=== PATIENT | female | born 1980 | race African-American/Black ===

== ENCOUNTER 2018-10-24 05:24 | Emergency (ER) | payer OTHER, SELFPAY ==
[2018-10-24 05:30] VITALS: BP 114/79; PULSE 79; RESP 16; O2SAT 100; BMI 31.1
--- NOTE | 2018-10-24 05:45 | ED.RECABL ---
HPI - Recheck/Abnormal Lab/Rx General Chief Complaint: Recheck/Abnormal Lab/Rx Stated Complaint: wants follow up on LI injury on sat [id number] Time Seen by Provider: 10/24/18 05:45 Source: patient and old records reviewed Mode of arrival: ambulatory Limitations: no limitations History of Present Illness HPI narrative: the patient is a 38-year-old female who presents all for re-evaluation and clearance for work. Yesterday she was seen evaluated walk-in clinic after transferring a patient at work to the toilet she is had some right-sided back pain. She had burning sensation down her back and both of her legs. She took some ibuprofen she was able to work out on the elliptical she did some stretching last night. And now she feels like she is ready and able to go to work. However she would like a note stating that she has restrictions. 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 Review of Systems Review of Systems GENERAL: Denies chills,fever HEENT: Denies throat pain RESPIRATORY: Denies dyspnea, cough, wheezing CARDIOVASCULAR: Denies chest pain, palpitations GASTROINTESTINAL: Denies nausea, vomiting MUSCULOSKELETAL: see HPI SKIN: No rash, no laceration, no pruritus NEUROLOGIC: Denies weakness, dizziness, headache, numbness 8 point review of systems is negative except for those stated above and HPI PFSH Medical History Patient denies significant medical history (Acute) Social History Smoking Status: Never smoker Social History Smoking Status: Never smoker Exam Initial Vital Signs Initial Vital Signs: Vital Signs Pulse Rate 79 10/24/18 05:30 Respiratory Rate 16 10/24/18 05:30 Blood Pressure 114/79 10/24/18 05:30 Pulse Oximetry 100 10/24/18 05:30 GENERAL: Well-appearing, well-nourished and in no acute distress. CARDIOVASCULAR: peripheral pulses in tact, cap refill <2 sec RESPIRATORY: No respiratory distress, speaks in full sentences without difficulty BACK: no vertebral tenderness no lower lumbar pain no flank pain EXTREMITIES: Normal range of motion, no clubbing or edema. Neurovascularly intact NEUROLOGICAL: Cranial nerves II through XII grossly intact. Normal gait and speech. SKIN: Warm, dry, no petechiae, no rashes or lesions. Course Vital Signs - 8 hr 10/24/18 05:30 Pulse Rate 79 Respiratory Rate 16 Blood Pressure 114/79 Pulse Oximetry 100 MDM - Recheck/Abnormal Lab/Rx MDM Narrative Medical decision making narrative: patient is requesting to go back to work. She is nursing care attendant she does not typically transfer patients. She is he states that she would like to go back to light duty with certain restrictions. I have discussed with her that she will need full clearance by her primary doctor. She understands and is agreeable. Discharge Plan Departure Patient Disposition: Home Clinical Impression: Strain of mid-back Qualifiers: Encounter type: subsequent encounter Qualified Code(s): S29.012D - Strain of muscle and tendon of back wall of thorax, subsequent encounter Discharge Date/Time: 10/24/18 05:57 Interventions: ED Discharge Assessment Last Done: 10/24/18 05:57 Instructions: Exercise May Reduce Risk of Low Back Pain Activity Restrictions/Additional Instructions: *You have been diagnosed with mid to low back strain *What to do: may return back to work however no lifting more than 10 lb no standing or sitting for prolonged periods of time. for full clearance back to work you will need note and evaluation by her primary care provider *Continue to take medications as directed Motrin 600 mg every 6-8 hours if needed for [id number] pain *Follow up with your primary care provider in 2-3 days *Return to ER if you should have increasing back pain, numbness, tingling, weakness or any new, worsening or concerning symptoms Stand Alone Forms: Work Release Note
--- NOTE | 2018-10-24 05:52 | ED_ITS ---
HPI - Recheck/Abnormal Lab/Rx General Chief Complaint: Recheck/Abnormal Lab/Rx Stated Complaint: wants follow up on LI injury on sat [id number] Time Seen by Provider: 10/24/18 05:45 Source: patient and old records reviewed Mode of arrival: ambulatory Limitations: no limitations History of Present Illness HPI narrative: the patient is a 38-year-old female who presents all for re- evaluation and clearance for work. Yesterday she was seen evaluated walk-in clinic after transferring a patient at work to the toilet she is had some right- sided back pain. She had burning sensation down her back and both of her legs. She took some ibuprofen she was able to work out on the elliptical she did some stretching last night. And now she feels like she is ready and able to go to work. However she would like a note stating that she has restrictions. 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 Review of Systems Review of Systems GENERAL: Denies chills,fever HEENT: Denies throat pain RESPIRATORY: Denies dyspnea, cough, wheezing CARDIOVASCULAR: Denies chest pain, palpitations GASTROINTESTINAL: Denies nausea, vomiting MUSCULOSKELETAL: see HPI SKIN: No rash, no laceration, no pruritus NEUROLOGIC: Denies weakness, dizziness, headache, numbness 8 point review of systems is negative except for those stated above and HPI PFSH Medical History Patient denies significant medical history (Acute) Social History Smoking Status: Never smoker Social History Smoking Status: Never smoker Exam Initial Vital Signs Initial Vital Signs: Vital Signs Pulse Rate 79 10/24/18 05:30 Respiratory Rate 16 10/24/18 05:30 Blood Pressure 114/79 10/24/18 05:30 Pulse Oximetry 100 10/24/18 05:30 GENERAL: Well-appearing, well-nourished and in no acute distress. CARDIOVASCULAR: peripheral pulses in tact, cap refill <2 sec RESPIRATORY: No respiratory distress, speaks in full sentences without difficulty BACK: no vertebral tenderness no lower lumbar pain no flank pain EXTREMITIES: Normal range of motion, no clubbing or edema. Neurovascularly intact NEUROLOGICAL: Cranial nerves II through XII grossly intact. Normal gait and speech. SKIN: Warm, dry, no petechiae, no rashes or lesions. Course Vital Signs - 8 hr 10/24/18 05:30 Pulse Rate 79 Respiratory Rate 16 Blood Pressure 114/79 Pulse Oximetry 100 MDM - Recheck/Abnormal Lab/Rx MDM Narrative Medical decision making narrative: patient is requesting to go back to work. 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 She is he states that she would like to go back to light duty with certain restrictions. I have discussed with her that she will need full clearance by her primary doctor. She understands and is agreeable. Discharge Plan Departure Patient Disposition: Home Clinical Impression: Strain of mid-back Qualifiers: Encounter type: subsequent encounter Qualified Code(s): S29.012D - Strain of muscle and tendon of back wall of thorax, subsequent encounter Discharge Date/Time: 10/24/18 05:57 Interventions: ED Discharge Assessment Last Done: 10/24/18 05:57 Instructions: Exercise May Reduce Risk of Low Back Pain Activity Restrictions/Additional Instructions: *You have been diagnosed with mid to low back strain *What to do: may return back to work however no lifting more than 10 lb no standing or sitting for prolonged periods of time. for full clearance back to work you will need note and evaluation by her primary care provider *Continue to take medications as directed Motrin 600 mg every 6-8 hours if needed for [id number] pain *Follow up with your primary care provider in 2-3 days *Return to ER if you should have increasing back pain, numbness, tingling, weakness or any new, worsening or concerning symptoms Stand Alone Forms: Work Release Note
== END 2018-10-24 05:57 | disposition home or self-care (01) ==
LOC: ED 06:03
PROVIDERS: Emergency Provider Emergency Medicine
DX: S29.012D Strain of muscle and tendon of back wall of thorax, subsequent encounter (principal); X50.0XXD Overexertion from strenuous movement or load, subsequent encounter
CPT/HCPCS: 99282

== ENCOUNTER 2020-01-07 21:09 | Emergency (ER) | payer OTHER, SELFPAY ==
--- NOTE | 2020-01-07 21:16 | ED.CHESTPAIN ---
HPI - Chest Pain General Chief Complaint: Chest Pain Stated Complaint: Chest Discomfort Time Seen by Provider: 01/07/20 21:10 Source: patient Mode of arrival: Ambulatory Limitations: no limitations History of Present Illness HPI narrative: 39-year-old female nonsmoker with history of a arrhythmia and ablation presents with a chief complaint of about 5 hours of retrosternal chest pressure. It was gradual in its onset. She denies any provocation, palliation or radiation. She denies associated symptoms such as dizziness, weakness or lightheadedness. She denies any unexplained diaphoresis nor nausea, vomiting or diarrhea. She has had no recent injury or travel. She denies any history of cancer or exogenous estrogens. She states this feels similar to when she was tachycardic prior to her ablation (in the 150s) MD complaint: chest pain Onset (ago): hour(s) Duration: constant Onset: during rest Pain location: substernal Severity: moderate Quality: aching Pain radiation: none Relieving factors: nothing Exacerbating factors: nothing Treatments prior to arrival chest pain: none Related Data On Oral Contraceptives: No Allergies Allergy/AdvReac Type Severity Reaction Status Date / Time chlorhexidine Allergy Rash Verified 01/07/20 21:22 Review of Systems Constitutional Constitutional: Denies chills, Denies fatigue, Denies fever(s), Denies frequent falls, Denies lethargy and Denies weakness Eyes Eyes: Denies change in vision, Denies eye discharge, Denies irritation and Denies loss of vision ENT Ears, Nose, Mouth, and Throat: Denies change in voice, Denies dizziness, Denies neck pain, Denies sore throat and Denies throat swelling Cardiovascular Cardiovascular: Reports chest pain, Denies irregular heart rhythm, Denies lightheadedness, Denies palpitations, Denies dyspnea, Denies dyspnea on exertion and Denies orthopnea Respiratory Respiratory: Denies cough, Denies dyspnea, Denies dyspnea on exertion and Denies wheezing Gastrointestinal Gastrointestinal: Denies abdominal pain, Denies change in bowel habits, Denies diarrhea, Denies nausea and Denies vomiting Genitourinary Genitourinary: Denies hematuria, Denies flank pain, Denies urinary incontinence and Denies urinary urgency Musculoskeletal Musculoskeletal: Denies back pain, Denies muscle weakness, Denies neck pain, Denies numbness and Denies tingling Integumentary/Breasts Skin/Breast: Denies pruritus, Denies erythema, Denies rash and Denies wounds Neurologic Neurologic: Denies behavioral changes, Denies confusion, Denies dizziness, Denies frequent falls, Denies loss of vision, Denies numbness, Denies tingling and Denies weakness Psychiatric Psychiatric: Denies anxiety, Denies behavioral changes, Denies confusion, Denies depression, Denies homicidal ideation and Denies suicidal ideation Endocrine Endocrine: Denies fatigue, Denies flushing and Denies palpitations Hematologic/Lymphatic Hematologic/Lymphatic: Denies easy bruising Allergic/Immunologic Allergic/Immunologic: Denies urticaria, Denies throat swelling and Denies wheezing Patient History Medical History (Updated 01/08/20 @ 00:24 by Brad Valdes DO) Patient denies significant medical history (Acute) Social History Smoking Status: Never smoker Smoking Status: Never smoker alcohol intake frequency: 0-2 drinks per day Substance Use Type: does not use Exam Narrative Exam Narrative: GENERAL: [39] year old patient appears stated age. Well-nourished, well-developed patient, in mild distress. HEAD: Atraumatic. Normocephalic. EYES: Pupils equal round and reactive. Extraocular motions intact. No scleral icterus. No injection or drainage. ENT: Nose without bleeding, purulent drainage. Throat without erythema, tonsillar hypertrophy or exudate. Airway patent. NECK: Trachea midline. Non tender CARDIOVASCULAR: Regular rate and rhythm without murmurs, gallops, or rubs. RESPIRATORY: Clear to auscultation. Breath sounds equal bilaterally. No wheezes, rales, or rhonchi. GASTROINTESTINAL: Abdomen soft, non-tender, nondistended. EXTREMITIES: No edema or joint tenderness. BACK: Nontender without deformity or crepitance. No flank tenderness. NEURO: AOx3. SKIN: No rash or erythema of visible areas Initial Vital Signs Initial Vital Signs: Vital Signs Pulse Rate 91 H 01/07/20 21:17 Respiratory Rate 16 01/07/20 21:17 Blood Pressure 134/73 01/07/20 21:17 Pulse Oximetry 100 01/07/20 21:17 Course Orders Ordered: Discontinued Medications Sodium Chloride (Normal Saline 0.9%) 1,000 mls @ 150 mls/hr IV CONT ASHLY Last Infusion: 01/08/20 00:33 Dose: 0 mls/hr Documented by: Admin: 01/07/20 21:49 Dose: 150 mls/hr Documented by: CARIDAD Vital Signs Vital signs: Vital Signs - 8 hr 01/07/20 21:17 Pulse Rate 91 H Respiratory Rate 16 Blood Pressure 134/73 Pulse Oximetry 100 MDM - Chest Pain Lab Data Result diagrams: 01/07/20 21:38 01/07/20 21:38 Labs: Lab Results 01/07/20 01/07/20 01/07/20 Range/Units 21:38 21:38 21:38 WBC 6.9 (4.5-11.0) X10^3/uL RBC 4.84 (4.0-5.2) X10^6/uL Hgb 12.4 (12.0-16.0) g/dL Hct 37.0 (36-46) % MCV 76.5 L (80-100) fL MCH 25.6 L (26-34) PG MCHC 33.4 (30-36) % RDW 19.9 H (11.6-14.8) % Plt Count 273 (150-400) X10^3/uL Neut % (Auto) 46.0 L (50-75) % Lymph % (Auto) 43.8 H (25-40) % Independence % (Auto) 8.6 (3-14) % Eos % (Auto) 1.2 L (2-4) % Baso % (Auto) 0.4 (0-2) % Neut # (Auto) 3200 (1931-8081) /uL Lymph # (Auto) 3000 (9291-6703) /uL Independence # (Auto) 600 (0-900) /uL Eos # (Auto) 100 (0-450) /uL Baso # (Auto) 0 (0-100) /uL PT 12.6 (10.1-12.7) SECONDS INR 1.1 (0.9-1.3) APTT 30 (26.4-36.2) SECONDS D-Dimer < 200 (<230) ng/mL Sodium 137 (137-145) mmol/L Potassium 3.9 (3.4-5.1) mmol/L Chloride 104 (98-107) mmol/L Carbon Dioxide 27 (22-32) mmol/L BUN 12 (7-17) mg/dL Creatinine 0.76 (0.52-1.04) mg/dL Estimated GFR > 60.0 (>60) mL/min BUN/Creatinine Ratio 15.8 (6-22) Glucose 97 (70-100) mg/dL Calcium 9.5 (8.4-10.2) mg/dL Total Bilirubin 0.7 (0.2-1.3) mg/dL AST 25 (14-36) IU/L ALT 23 (<35) IU/L Alkaline Phosphatase 56 (38-126) U/L Total Creatine Kinase 32 (30-135) U/L CK-MB (CK-2) TNP CK-MB (CK-2) Rel Index TNP Troponin I < 0.012 (0.01-0.034) ng/mL Total Protein 7.8 (6.3-8.2) g/dL Albumin 4.4 (3.5-5.0) g/dL Globulin 3.4 (1.7-4.1) g/dL Albumin/Globulin Ratio 1.3 (1.0-2.8) Lipase 126 (23-300) U/L 01/07/20 Range/Units 23:33 WBC (4.5-11.0) X10^3/uL RBC (4.0-5.2) X10^6/uL Hgb (12.0-16.0) g/dL Hct (36-46) % MCV (80-100) fL MCH (26-34) PG MCHC (30-36) % RDW (11.6-14.8) % Plt Count (150-400) X10^3/uL Neut % (Auto) (50-75) % Lymph % (Auto) (25-40) % Independence % (Auto) (3-14) % Eos % (Auto) (2-4) % Baso % (Auto) (0-2) % Neut # (Auto) (9677-8954) /uL Lymph # (Auto) (3947-7735) /uL Independence # (Auto) (0-900) /uL Eos # (Auto) (0-450) /uL Baso # (Auto) (0-100) /uL PT (10.1-12.7) SECONDS INR (0.9-1.3) APTT (26.4-36.2) SECONDS D-Dimer (<230) ng/mL Sodium (137-145) mmol/L Potassium (3.4-5.1) mmol/L Chloride (98-107) mmol/L Carbon Dioxide (22-32) mmol/L BUN (7-17) mg/dL Creatinine (0.52-1.04) mg/dL Estimated GFR (>60) mL/min BUN/Creatinine Ratio (6-22) Glucose (70-100) mg/dL Calcium (8.4-10.2) mg/dL Total Bilirubin (0.2-1.3) mg/dL AST (14-36) IU/L ALT (<35) IU/L Alkaline Phosphatase (38-126) U/L Total Creatine Kinase (30-135) U/L CK-MB (CK-2) CK-MB (CK-2) Rel Index Troponin I < 0.012 (0.01-0.034) ng/mL Total Protein (6.3-8.2) g/dL Albumin (3.5-5.0) g/dL Globulin (1.7-4.1) g/dL Albumin/Globulin Ratio (1.0-2.8) Lipase (23-300) U/L MDM Narrative Medical decision making narrative: Multiple causes of chest pain considered including ID, PE, pneumothorax, pneumonia, aortic dissection, and pleurisy. Patient reports no radiation, no diaphoresis, no provocation with exertion, and no vomiting] Patient's symptoms improved or duration of stay with above-stated therapies. Findings and discharge diagnosis discussed with patient/family followed by verbalization of understanding Return precautions discussed with patient/family whom verbalize understanding. Discharge Plan Departure Patient Disposition: Home Clinical Impression: Atypical chest pain Discharge Date/Time: 01/08/20 00:35 Instructions: DI for Atypical Chest Pain Activity Restrictions/Additional Instructions: *You have been diagnosed with [atypical chest pain] *What to do: *Take medications as directed *Follow up with your primary care provider in 2-3 days, call for an appointment. Let them know you were seen in the Emergency Department and that we ask that you be seen in follow up *Return to ER if you should have any new, worsening or concerning symptoms
[2020-01-07 21:17] VITALS: BP 134/73; PULSE 91; RESP 16; O2SAT 100; BMI 32.5
--- NOTE | 2020-01-07 21:24 | DI.RAD.S_ITS ---
PROCEDURE: XR CHEST 1V INDICATIONS: chest pain / pressure TECHNIQUE: One view of the chest was acquired. COMPARISON: None. FINDINGS: Surgical changes and devices: None. Lungs and pleura: Lungs are clear. No pleural effusions or pneumothorax. Mediastinum: Mediastinal contours appear normal. Heart size is normal. Bones and chest wall: No suspicious bony lesions. Overlying soft tissues appear unremarkable. IMPRESSION: No acute cardiopulmonary findings. Dictated by: Neli Ho M.D. on 01/07/2020 at 22:00 Approved by: Neli Ho M.D. on 01/07/2020 at 22:00
[2020-01-07 21:47] LABS: Add Manual Diff / Slide Review NO; Basophils Absolute Auto 0 /uL (0-100); Basophils Percent Auto 0.4 % (0-2); Eosinophils Absolute Auto 100 /uL (0-450); Eosinophils Percent Auto 1.2 % (2-4); Hemoglobin 12.4 g/dL (12.0-16.0); Lymphocytes Absolute Auto 3000 /uL (1100-4500); Lymphocytes Percent Auto 43.8 % (25-40); Mean Corpuscular HGB Conc 33.4 % (30-36); Mean Corpuscular Hemoglobin 25.6 PG (26-34); Mean Corpuscular Volume 76.5 fL (80-100); Monocytes Absolute Auto 600 /uL (0-900); Monocytes Percent Auto 8.6 % (3-14); Neutrophils Absolute Auto 3200 /uL (1500-7000); Platelet Count 273 X10^3/uL (150-400); Red Blood Cell Count 4.84 X10^6/uL (4.0-5.2); Red Cell Distribution Width 19.9 % (11.6-14.8); White Blood Cell Count 6.9 X10^3/uL (4.5-11.0)
[2020-01-07] MEDS: SODIUM CHLORIDE 0.9% 1,000 ML 150 ML IV (21:49)
[2020-01-07 21:53] LABS: INR 1.1 (0.9-1.3); Prothrombin Time 12.6 SECONDS (10.1-12.7)
[2020-01-07 21:55] LABS: PTT Partial Thromboplastin Tim 30 SECONDS (26.4-36.2)
[2020-01-07 21:56] LABS: D Dimer < 200 ng/mL (<230)
[2020-01-07 21:57] LABS: Alanine Aminotransferase 23 IU/L (<35); Albumin 4.4 g/dL (3.5-5.0); Albumin Globulin Ratio 1.3 (1.0-2.8); Alkaline Phosphatase 56 U/L (38-126); Aspartate Aminotransferase 25 IU/L (14-36); BUN Creatinine Ratio 15.8 (6-22); Bilirubin Total 0.7 mg/dL (0.2-1.3); Blood Urea Nitrogen 12 mg/dL (7-17); Calcium 9.5 mg/dL (8.4-10.2); Carbon Dioxide 27 mmol/L (22-32); Chloride 104 mmol/L (98-107); Creatine Kinase 32 U/L (30-135); Estimated Glomerular Filt Rate > 60.0 mL/min (>60); Globulin 3.4 g/dL (1.7-4.1); Glucose 97 mg/dL (70-100); HEMOLYSIS < 15 (0-50); Lipase 126 U/L (23-300); Potassium 3.9 mmol/L (3.4-5.1); Sodium 137 mmol/L (137-145); Total Protein 7.8 g/dL (6.3-8.2)
[2020-01-07 22:00] VITALS: BP 131/80; PULSE 79; RESP 21; O2SAT 100
[2020-01-07 22:09] LABS: Troponin I < 0.012 ng/mL (0.01-0.034)
[2020-01-07 22:13] VITALS: BP 131/83; PULSE 80; RESP 18; O2SAT 100
[2020-01-07 23:08] VITALS: BP 121/77; PULSE 80; RESP 13; O2SAT 100
[2020-01-08 00:18] LABS: Troponin I < 0.012 ng/mL (0.01-0.034)
[2020-01-08 00:34] VITALS: BP 120/81; PULSE 86; RESP 15; O2SAT 100
== END 2020-01-08 00:35 | disposition home or self-care (01) ==
PROVIDERS: Emergency Provider Emergency Medicine
DX: R07.89 Other chest pain (principal)
CPT/HCPCS: 36415; 71045; 80053; 82550; 83690; 84484; 85025; 85379; 85610; 85730; 93005; 96360; 96361; 99284